=== PATIENT | male | born 1980 | race Two or more races ===

== ENCOUNTER 2024-12-15 20:52 | Emergency (ER) | payer MEDICAID, SELFPAY ==
[2024-12-15 20:53] VITALS: BMI 26.4
[2024-12-15 21:21] VITALS: BP 126/76; PULSE 79; RESP 16; TEMP 37.1; O2SAT 99
--- NOTE | 2024-12-15 21:40 | EDNOTE_ITS ---
ED General RME/HPI General Chief complaint: General Adult/Misc Complain Stated complaint: R 1,2,3 FINGER TINGLING Time Seen by Provider: 12/15/24 21:15 Arrival date/time: 12/15/24 20:52 This is a 43-year-old male that comes in with complaints of tingling to his 1st and 2nd and 3rd digit transient in certain positions. Patient states he noticed that a couple days ago when he was laying down in a certain position in his bed and it resolved usually immediately and today he noticed it when while he was eating. Patient denies any focal deficits. Patient states tingling usually resolves on its own within seconds. Patient denies any past medical history. Patient reports that he has been lifting a lot more lately at the gym. He also reports that he sits sleeps usually with a stuffed animal under his neck and he thinks it is hurting his neck recently. Related Data Home Medications ?Medication ?Instructions ?Recorded ?Confirmed No Known Home Medications 01/15/1906/04 Allergies Allergy/AdvReac Type Severity Reaction Status Date / Time No Known Allergies Allergy Verified 12/17/24 00:57 Review of Systems Review of Systems Systems Reviewed: All systems reviewed, normal except as documented Past Medical History Past Medical History CARDIAC: Negative Congestive Heart Failure RESPIRATORY: Negative Chronic Obstructive Pulmonary Disease (COPD) GENITOURINARY: Negative Renal Disease ENDOCRINE: Negative Diabetes Mellitus Type 1 or Diabetes Mellitus Type 2 Social History SMOKING STATUS: Never smoker ED Exam Narrative Physical exam: VITAL SIGNS: Reviewed. GENERAL APPEARANCE: Alert and interactive, follows commands, no acute distress, HEAD AND FACE: Non-traumatic. ENT: PERRL, conjuctiva pink and clear, eyelid no trauma, Mucous membrane moist. NECK: Supple, nontender, no nuchal rigidity. CHEST: No tenderness, no crepitus, no paradoxical movement, no retractions. LUNGS: Clear, well ventilated, symmetric, no rales, no wheezing, no rhonchi, no stridor, good breath sounds bilaterally. HEART: Regular rate, regular rhythm, no murmur, no gallops. ABDOMEN: Soft, nondistended, no guarding, nontender NEUROLOGICAL: Gross motor function intact sensory function intact, Appropriate for age. MUSCULOSKELETAL: low back nontender, full range of motion. EXTREMITIES: No redness no swelling no skin breakdown on bilateral foot and leg. Distal neurovascular status intact bilateral foot SKIN: Color pink, dry, no rash, no lacerations, no abrasions, no contusions. Course Quality Measures none Vital Signs Vital signs: Vital Signs Temperature 98.7 F 12/15/24 21:21 Pulse Rate 79 12/15/24 21:21 Respiratory Rate 16 12/15/24 21:21 Blood Pressure 126/76 12/15/24 21:21 Pulse Oximetry (%) 99 12/15/24 21:21 Oxygen Delivery Method Room Air 12/15/24 21:21 Discharge Plan Plan Patient Disposition: HOME (Self Care) Patient condition on transfer: Stable Prescriptions/Referrals Prescriptions/Med Rec: No Action No Known Home Medications Problem List Clinical Impression: Paresthesia Patient/Caregiver Discharge Instructions Discharge Activity: activity as tolerated Education Materials: ED Paraesthesias Additional Instructions: Follow up with primary provider in 1-2 days. Come back to ED if symptoms change or worsen Print Language: Surinamese Stand Alone Forms: [employer] Award Info., Patient Portal Info Letter CINDY/PRINCESS Supervising Physician CINDY/PRINCESS Supervising Physician: jimena CRAVEN Narrative [facility] hospital course: Spoke to patient at length. Patient has no focal deficits. Patient is actually not having any tingling at this time. Patient states these are episodic very brief and resolve within seconds. Explained to patient to follow-up with his primary provider if they symptoms continue. He may need an x-ray or CT of his neck to see if he has any nerve compression. Patient feels comfortable with plan of care. Patient verbalizes that he will follow-up with his primary doctor. Dragon dictation: Although this document has been carefully reviewed, there may still be some phonetic and other typographical errors. These errors are purely grammatical due to imperfections in the software program and should not be construed in any way to compromise the substance of the patient's medical care during this visit. Clinical Information Provided by patient Medical Records Reviewed [facility] Meds/Rx Considered, not Ordered None Labs/Rad/Tests considered, not Ordered None Chronic Illness/Social Conditions which may negatively complicate care or outcome(s)-explain: None or not applicable Lab Interpretation Labs: none Imaging Imaging interpretation: none Medication Administration(s) none Dispositon Disposition: Discharge Home
== END 2024-12-15 21:47 | disposition home or self-care (01) ==
LOC: SERX 21:47
PROVIDERS: Emergency Provider Emergency Medicine
DX: R20.2 Paresthesia of skin (principal)
CPT/HCPCS: 99281

== ENCOUNTER 2024-12-16 04:41 | Emergency (ER) | payer MEDICAID, SELFPAY ==
[2024-12-16 04:43] VITALS: BMI 26.4
--- NOTE | 2024-12-16 04:48 | EKG_ITS ---
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
[2024-12-16 04:55] VITALS: BP 155/88; PULSE 73; RESP 16; TEMP 36.7; O2SAT 99
--- NOTE | 2024-12-16 05:34 | PD.EDNEURO ---
Neuro Symptoms Deficit-RME/HPI General Chief Complaint: Extremity Injury, Upper Stated Complaint: R ARM PAIN AND TINGLING Time Seen by Provider: 12/16/24 05:23 Arrival date/time: 12/16/24 04:41 43M with no significant PMH presents to ED with 2 days of R thumb and index finger tingling, as well as some R elbow/upper back pain. Patient denies fall/trauma. Patient also denies CP, SOB, dizziness, N/V, vision changes, weakness, numbness, and drug/alcohol use. Patient was here earlier for this, but came back because when he woke up today, the tingling pins and needles took longer than yesterday to go away. Patient states rubbing his R elbow improves symptoms. Limitations: no limitations Related Data Home Medications ?Medication ?Instructions ?Recorded ?Confirmed No Known Home Medications 01/15/19 01/15/19 Allergies Allergy/AdvReac Type Severity Reaction Status Date / Time No Known Allergies Allergy Verified 12/16/24 04:45 Review of Systems Review of Systems Systems Reviewed: All systems reviewed, normal except as documented Constitutional Constitutional: Reports system reviewed and no additional complaints, except as documented, Denies fever(s) and Denies headache(s) ENT Ears, Nose, Mouth, and Throat: Denies disequilibrium and Denies headache(s) Cardiovascular Cardiovascular: Reports system reviewed and no additional complaints, except as documented, Denies chest pain and Denies dyspnea Respiratory Respiratory: Reports system reviewed and no additional complaints, except as documented, Denies cough and Denies dyspnea Gastrointestinal Gastrointestinal: Reports system reviewed and no additional complaints, except as documented, Denies abdominal pain, Denies nausea and Denies vomiting Musculoskeletal Musculoskeletal: Reports tingling Neurologic Neurologic: Reports system reviewed and no additional complaints, except as documented, Reports as per HPI, Denies confusion, Denies disequilibrium, Denies headache(s) and Reports tingling Psychiatric Psychiatric: Denies confusion Past Medical History Past Medical History CARDIAC: Negative Congestive Heart Failure RESPIRATORY: Negative Chronic Obstructive Pulmonary Disease (COPD) GENITOURINARY: Negative Renal Disease ENDOCRINE: Negative Diabetes Mellitus Type 1 or Diabetes Mellitus Type 2 Social History SMOKING STATUS: Never smoker ED Exam General Limitations: Present no limitations General appearance: Present alert and in no apparent distress Head Head exam: Present atraumatic Eye Eye exam: Present normal appearance, PERRL and EOMI ENT ENT exam: Present normal exam, normal oropharynx and mucous membranes moist Neck Neck exam: Present normal inspection, full ROM and trachea midline Chest Chest inspection: Present normal inspection and symmetric chest wall rise Respiratory Respiratory exam: Present normal lung sounds bilaterally Cardiovascular Cardiovascular exam: Present regular rate, normal rhythm and normal heart sounds Abdominal Exam Abdominal exam: Present soft and normal bowel sounds Extremities Exam Extremities exam: Present normal inspection and full ROM Back Exam Back exam: Present normal inspection and full ROM Neurological Exam Neurological exam: Present alert, oriented X3 and CN II-XII intact Psychiatric Psychiatric exam: Present normal affect and normal mood Skin Skin exam: Present warm, dry, intact and normal color Course Quality Measures none Orders Category Date Time Status EKG (ED ONLY) *Do not use* NOW Care 12/16/24 04:48 Active EKG (ED Only) Stat Exams 12/16/24 04:48 Draft Vital Signs Vital signs: Vital Signs Temperature 98.1 F 12/16/24 04:55 Pulse Rate 73 12/16/24 04:55 Respiratory Rate 16 12/16/24 04:55 Blood Pressure 155/88 H 12/16/24 04:55 Pulse Oximetry (%) 99 12/16/24 04:55 Oxygen Delivery Method Room Air 12/16/24 04:55 O2 at 99% on RA and WNLs Neuro Symptoms / Deficit MDM Narrative MDM Narrative:: 43M with no significant PMH presents to ED with 2 days of R thumb and index finger tingling, as well as some R elbow/upper back pain. Patient denies fall/trauma. Patient also denies CP, SOB, dizziness, N/V, vision changes, weakness, numbness, and drug/alcohol use. Patient was here earlier for this, but came back because when he woke up today, the tingling pins and needles took longer than yesterday to go away. Patient states rubbing his R elbow improves symptoms. Physical exam reveals normal pupil response and EOM. CN II-XII grossly intact. Normal WOB. Strength equal bilaterally. RUE sensation intact. Neg pronator drift test. Gait normal. Speech normal. Patient is afebrile, calm, and alert. EKG is NSR. 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 Symptoms likely due to radial nerve pinching from R elbow inflammation. 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 Patient data External records reviewed:: [facility] previous records Clinical information provided by:: patient Social determinants that could affect healthcare access:: none Patient has the following chronic illnesses:: none How is presenting disease/condition affected by chronic disease/condition?: no chronic disease Evaluation data The following diagnostics were reviewed and interpreted by me:: EKG tracing(s) Lab and/or radiology exams considered but not ordered:: ordered Interpretation Summary: above Medications / Prescriptions Medications or Prescriptions considered but not ordered:: not ordered Medication administrations:: n/a Consultations Consultation(s) initiated? (list below): No Diagnosis Neuro Differential Diagnosis: carpal tunnel syndrome, convulsions, delirium, subarachnoid hemorrhage, peripheral neuropathy, cerebrovascular accident, multiple sclerosis, transient cerebral ischemia and other (paresthesia, arthralgia) Most likely diagnosis given after review of the tests above:: paresthesia, and arthralgia Admission Indicated Admission indicated?: not indicated Admission Request Was there a request for admission?: No Disposition Plan Disposition Plan: Discharge Discharge Attestation Discharge Attestation: The patient and all family members were given an opportunity to ask questions and understood the discharge instructions. Discharge instructions specifically effects, indications for sooner follow up or return to the emergency department, and the expected course of current diagnosis. Patient condition: Stable Discharge Plan Plan Patient Disposition: HOME (Self Care) Discharge Disposition comment: Stable Prescriptions/Referrals Prescriptions/Med Rec: No Action No Known Home Medications Problem List Clinical Impression: Paresthesia, Arthralgia Patient/Caregiver Discharge Instructions Education Materials: ED Arthralgia, ED Paraesthesias Additional Instructions: Please follow-up with PCP within 24-48 hours and return immediately if symptoms worsen. If problem persists, recommend outpatient PT and/or MRI follow-up. In the meantime, rest, use ice/heat, and/or compression. Watch for any unexplained N/V, dizziness, weakness, numbness, vision changes, and abnormal speech/behavior. Print Language: Colombian Stand Alone Forms: Patient Portal Info Letter CINDY/PRINCESS Supervising Physician GENOVEVA Supervising Physician: Dr. Diamond
== END 2024-12-16 06:53 | disposition home or self-care (01) ==
LOC: SERX 05:32
PROVIDERS: Emergency Provider Emergency Medicine
DX: R20.2 Paresthesia of skin (principal); M25.541 Pain in joints of right hand; R94.31 Abnormal electrocardiogram [ECG] [EKG]
CPT/HCPCS: 99283

== ENCOUNTER 2024-12-17 00:56 | Emergency (ER) | payer MEDICAID, SELFPAY ==
[2024-12-17 00:57] VITALS: BMI 26.4
[2024-12-17 01:08] VITALS: BP 134/81; PULSE 71; RESP 18; TEMP 36.6; O2SAT 98
--- NOTE | 2024-12-17 01:29 | EDNOTE_ITS ---
ED Extremity Problem RME/HPI General Chief complaint: Extremity Problem,Nontraumatic Stated complaint: BURNING TO RIGHT ARM, I THINK I PINCH A NERVE Time Seen by Provider: 12/17/24 01:27 Arrival date/time: 12/17/24 00:56 43M with no significant PMH presents to ED with several days of days of R thumb and index finger tingling (and now middle finger), as well as some R elbow/upper back pain. Patient denies fall/trauma. Patient also denies CP, SOB, neck pain, dizziness, N/V, vision changes, weakness, numbness, and drug/alcohol use. Patient was here twice for this, but came back because when he woke up today, the tingling pins and needles took longer than yesterday to go away. Patient states rubbing his R elbow/back improves symptoms. Patient went to PCP who gave him some ibuprofen, which has only helped a bit. Limitations: no limitations Related Data Home Medications ?Medication ?Instructions ?Recorded ?Confirmed No Known Home Medications 01/15/1906/04 Allergies Allergy/AdvReac Type Severity Reaction Status Date / Time No Known Allergies Allergy Verified 12/17/24 00:57 Review of Systems Review of Systems Systems Reviewed: All systems reviewed, normal except as documented Constitutional Constitutional: Reports system reviewed and no additional complaints, except as documented, Denies fever(s) and Denies headache(s) ENT Ears, Nose, Mouth, and Throat: Denies disequilibrium and Denies headache(s) Cardiovascular Cardiovascular: Reports system reviewed and no additional complaints, except as documented, Denies chest pain and Denies dyspnea Respiratory Respiratory: Reports system reviewed and no additional complaints, except as documented, Denies cough and Denies dyspnea Gastrointestinal Gastrointestinal: Reports system reviewed and no additional complaints, except as documented, Denies abdominal pain, Denies nausea and Denies vomiting Musculoskeletal Musculoskeletal: Reports tingling Neurologic Neurologic: Reports system reviewed and no additional complaints, except as documented, Reports as per HPI, Denies confusion, Denies disequilibrium, Denies headache(s) and Reports tingling Psychiatric Psychiatric: Denies confusion Past Medical History Past Medical History CARDIAC: Negative Congestive Heart Failure RESPIRATORY: Negative Chronic Obstructive Pulmonary Disease (COPD) GENITOURINARY: Negative Renal Disease ENDOCRINE: Negative Diabetes Mellitus Type 1 or Diabetes Mellitus Type 2 Social History SMOKING STATUS: Never smoker ED Exam General Limitations: Present no limitations General appearance: Present alert and in no apparent distress Head Head exam: Present atraumatic Eye Eye exam: Present normal appearance, PERRL and EOMI ENT ENT exam: Present normal exam, normal oropharynx and mucous membranes moist Neck Neck exam: Present normal inspection, full ROM and trachea midline Chest Chest inspection: Present normal inspection and symmetric chest wall rise Respiratory Respiratory exam: Present normal lung sounds bilaterally Cardiovascular Cardiovascular exam: Present regular rate, normal rhythm and normal heart sounds Abdominal Exam Abdominal exam: Present soft and normal bowel sounds Extremities Exam Extremities exam: Present normal inspection and full ROM Back Exam Back exam: Present normal inspection and full ROM Neurological Exam Neurological exam: Present alert, oriented X3 and CN II-XII intact Psychiatric Psychiatric exam: Present normal affect and normal mood Skin Skin exam: Present warm, dry, intact and normal color Course Quality Measures none Orders Category Date Time Status CT cervical spine wo con Stat Exams 12/17/24 01:[address] head/brain wo con Stat Exams 12/17/24 01:30 Ordered Dexamethasone Inj [Decadron Inj] Med 12/17/24 02:00 Discontinued 20 mg PO X1 ONE Gabapentin [Neurontin] Med 12/17/24 01:27 Discontinued 300 mg PO X1 ONE Vital Signs Vital signs: Vital Signs Temperature 98 F 12/17/24 01:08 Pulse Rate 71 12/17/24 01:08 Respiratory Rate 18 12/17/24 01:08 Blood Pressure 134/81 H 12/17/24 01:08 Pulse Oximetry (%) 98 12/17/24 01:08 Oxygen Delivery Method Room Air 12/17/24 01:08 O2 at 98% on RA and WNLs Extremity Problem MDM Narrative MDM Narrative:: 43M with no significant PMH presents to ED with several days of days of R thumb and index finger tingling (and now middle finger), as well as some R elbow/upper back pain. Patient denies fall/trauma. Patient also denies CP, SOB, neck pain, dizziness, N/V, vision changes, weakness, numbness, and drug/alcohol use. Patient was here twice for this, but came back because when he woke up today, the tingling pins and needles took longer than yesterday to go away. Patient states rubbing his R elbow/back improves symptoms. Patient went to PCP who gave him some ibuprofen, which has only helped a bit. Physical exam reveals normal pupil response and EOM. CN II-XII grossly intact. Normal WOB. Strength equal bilaterally. RUE sensation intact. Neg pronator drift test. Gait normal. Speech normal. Patient is afebrile, calm, and alert. Symptoms likely due to radial nerve pinching from R elbow/back inflammation. 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 Patient eloped prio r to CT. Patient data External records reviewed:: [facility] previous records Clinical information provided by:: patient Social determinants that could affect healthcare access:: none Patient has the following chronic illnesses:: none How is presenting disease/condition affected by chronic disease/condition?: no chronic disease Evaluation data The following diagnostics were reviewed and interpreted by me:: radiology exam(s) Lab and/or radiology exams considered but not ordered:: ordered Interpretation Summary: above Medications / Prescriptions Medications or Prescriptions considered but not ordered:: ordered Medication administrations:: Medication Administration History Discontinued Medications Dexamethasone Sodium Phosphate (Dexamethasone Sod Phos Inj 10 Mg/Ml Vial) 20 mg PO X1 ONE Stop: 12/17/24 02:01 Last Admin: 12/17/24 02:20 Dose: 20 mg Documented By: ERNESTO Comments: given po Gabapentin (Gabapentin 300 Mg Capsule) 300 mg PO X1 ONE Stop: 12/17/24 01:28 Last Admin: 12/17/24 02:20 Dose: 300 mg Documented By: ERNESTO above Consultations Consultation(s) initiated? (list below): No Diagnosis Extremity Problem Differential Diagnosis: herpes zoster, gout, cellulitis, s uperficial thrombophlebitis, deep venous thrombosis of upper extremity, lower extremity edema, deep vein thrombosis of lower extremity and other (paresthesia, arthralgia, TIA/CVA) Most likely diagnosis given after review of the tests above:: paresthesia, arthralgia, Admission Indicated Admission indicated?: not indicated Admission Request Was there a request for admission?: No Disposition Plan Disposition Plan: other (specify) (eloped) Discharge Plan Plan Patient Disposition: Elopement Prescriptions/Referrals Prescriptions/Med Rec: No Action No Known Home Medications Referrals: No Primary/Family,Physician [Primary Care Provider] - In 1 week Problem List Clinical Impression: Paresthesia, Arthralgia Patient/Caregiver Discharge Instructions Print Language: Citizen Of [place] CINDY/PRINCESS Supervising Physician CINDY/PRINCESS Supervising Physician: Dr. Diamond
--- NOTE | 2024-12-17 01:50 | PC.NURSE ---
CALLED PT FOR MEDICATION NO ANSWER
--- NOTE | 2024-12-17 02:05 | PC.NURSE ---
CALLED PT FOR MEDICATION NO ANSWER
[2024-12-17] MEDS: GABAPENTIN 300 MG CAPSULE PO (02:20)
[2024-12-17] MEDS: DEXAMETHASONE SOD PHOS INJ 10 MG/ML VIAL 20 MG PO (02:20)
--- NOTE | 2024-12-17 04:13 | PC.NURSE ---
security seen pt leave on security camera at [phone]
--- NOTE | 2024-12-17 04:14 | PC.NURSE ---
attempted pt cell number twice no answer
--- NOTE | 2024-12-17 04:20 | PC.NURSE ---
CT CALLED PT I CALLED PT ATTEMPTED CELL PHONE WELL WILL CALL PT [address] PENDING
--- NOTE | 2024-12-17 04:29 | PC.NURSE ---
SECURITY [place] STATES HE SEEN PT LEAVE IN HIS TRUCK AT [phone] TAKING PT OUT SYSTEM PT ELOPED CALLED PT AGAIN CHECK LOBBY PT NO LONGER PRESENT
== END 2024-12-17 04:32 | disposition left against medical advice (07) ==
LOC: SERX 01:38
PROVIDERS: Emergency Provider Emergency Medicine
DX: R20.2 Paresthesia of skin (principal); M54.6 Pain in thoracic spine; M25.521 Pain in right elbow
CPT/HCPCS: 99283; J1100; A9270